=== PATIENT | male | born 1960 | race Caucasian/White ===

== ENCOUNTER → 2022-08-11 06:06 | Outpatient (CLI) | payer OTHER, SELFPAY ==
--- NOTE | 2022-08-11 06:18 | NM_ITS ---
APPROVED REPORT Exam: Nuclear Stress Test Indication: Chest pain, SOB, Obesity, HTN, DM, Family history Patient Location: Outpatient Stress Tech: Makenna Bill GA Tech:Yamileth Ma, ARRT, RT (R)(N) Ht: 6 ft 2 in Wt: 360 lbs HR: 70 bpm BP: 116/58 mmHg BSA: 2.79 m2 Rhythm: NSR TID: 1.34 BMI: 46.2 History: Chest pain, SOB, Obesity, HTN, DM, Family history Procedure: Patient received 0.4 mg of intravenous Lexiscan, resting heart rate 70 bpm, resting blood pressure 116/58 mmHg, with Lexiscan maximum heart rate achieved was 87 bpm which is 43 % of the maximum predicted heart rate and blood pressure was 123/48 mmHg. With Lexiscan, patient denied any complaint of chest pain. Cardiac Stress and Resting SPECT Images: Cardiac Stress and Resting SPECT images were obtained using technetium 99m Myoview 32.6 mCi stress and 10.34 mCi at rest. Resting and stress images in supine position demonstrate a medium-sized, moderate, fixed perfusion defect in the inferior LV wall. These defect is no longer visualized with prone stress imaging. Findings are suggestive of diaphragmatic attenuation. There is increased transient ischemic dilatation (TID 1.34) suggestive of possible balanced ischemia or multivessel disease. Gated imaging demonstrates low-normal global and regional systolic LV function. LVEF is calculated at 53%. Conclusion: Diaghragmatic attenuation is present. No definite fixed or reversible perfusion defects. Increased transient ischemic dilatation (TID 1.34) suggestive of possible balanced ischemia or multivessel disease. Gated imaging demonstrates low-normal global and regional systolic LV function. LVEF is calculated at 53%. Electronically signed by : Cassy Tellez, 08/13/2022 09:59:59
--- NOTE | 2022-08-11 08:19 | CA_ITS ---
APPROVED REPORT Exam: Pharmacologic Technologist: Makenna Rasmussen, Ht: 6 ft 2 in Wt: 360 lbs BSA: 2.79 m2 HR: 66 bpm BP: 116/58 mmHg Rhythm: NSR Medical History Medications: Amlodipine,,,,, Lisinopril,,,,, Aspirin,,,,, Metformin,,,,, Allopurinol,,,,, Pantoprazole,,,,, Atorvastatin,,,,, Glipizide,,,,, PERCOCET,,,,, TAMSULOSIN,,,,, Diclofenac,,,,, Magnesium,,,,, Stress Test Details Test: LEXISCAN Reason for pharmacologic stress test: physical limitation. HR Resting HR: 70 bpm Max Heart Rate (APMHR): 161 bpm Max HR Achieved: 87 bpm Target HR (85% APMHR): 137 bpm % of APMHR: 54 Recovery HR: 75 bpm BP Resting BP: 116.0/58.0 mmHg Max BP: 123.0/48.0 mmHg Recovery BP: 117.0/57.0 mmHg ECG Resting ECG: NSR Stress ECG: No ST changes Arrhythmia: None Recovery ECG: No ST changes Recovery Arrhythmia: None Clinical Exercise duration: 04:00 min Highest Stage Achieved: Exercise capacity: n/a METs Stress ECG Conclusion Symptoms: very mild chest discomfort, mildly light-headed. Arrhythmias/Ectopy: None ST-T Changes: No significant changes. Conclusion: Unremarkable Lexiscan stress. Myoview images reported separately. Test Summary REST . . . . . . . Resting REST 04:32 . . 70 . 116/ 58 . . Stage 1 01:00 . . 86 . . . . Stage 2 01:00 . . 80 . . . . Stage 3 01:00 . . 74 . 123/ 48 . . Stage 4 01:00 . . 74 . 108/ 50 . Stop exercise at 04:00 RECOVERY 01:00 . . 78 . . . . RECOVERY 02:00 . . 76 . 108/ 49 . . RECOVERY 03:00 . . 77 . 108/ 49 . . RECOVERY 04:00 . . 74 . 108/ 49 . . RECOVERY 04:24 . . 73 . 117/ 57 . . Electronically signed by : Cassy Tellez, 08/13/2022 09:51:57
--- NOTE | 2022-08-11 08:35 | HMH.ITSHM ---
Current Home Medications as stated by this patient Evan Huffman or strategic partnership representative. []SEMAGLUTIDE METFORMIN
== END ==
PROVIDERS: Visit Provider Physician Assistant
DX: R06.00 Dyspnea, unspecified (principal); R07.9 Chest pain, unspecified; R55 Syncope and collapse; R94.31 Abnormal electrocardiogram [ECG] [EKG]; Z01.810 Encounter for preprocedural cardiovascular examination
CPT/HCPCS: 78452; 93017; 93306; A9502; J2785; Q9957

== ENCOUNTER → 2022-08-25 08:34 | Day surgery (SDC) | payer OTHER, SELFPAY ==
[2022-08-25 08:40] VITALS: BMI 55.7
[2022-08-25 09:16] LABS: Basophils # 0.1 K/mm3 (0-0.2); Basophils % 0.7 % (0.1-2.0); Eosinophils # 0.2 K/mm3 (0.0-0.4); Eosinophils % 3.2 % (0.1-12.0); Hematocrit 41.1 % (42.0-52.0); Hemoglobin 13.3 g/dL (14.1-18.0); Lymphocytes # 2.2 K/mm3 (0.7-4.5); Lymphocytes % 32.2 % (10-50); Mean Corpuscular HGB Conc 32.4 g/dL (31.8-35.4); Mean Corpuscular Hemoglobin 29.6 pg (27.0-31.2); Mean Corpuscular Volume 91.1 fl (80-94); Monocytes # 0.5 K/mm3 (0.1-1.0); Monocytes % 7.9 % (1.7-9.3); Neutrophils # 3.8 K/mm3 (1.8-7.8); Platelet Count 197 K/mm3 (142-424); Red Blood Count 4.52 M/mm3 (4.60-6.20); White Blood Count 6.8 K/mm3 (4.8-10.8)
[2022-08-25 09:25] LABS: Chloride 106 mmol/L (98-107); Potassium 5.2 mmoL/L (3.5-5.1); Sodium 143 mmol/L (136-145)
[2022-08-25 09:26] VITALS: BP 137/77; PULSE 75; RESP 18; O2SAT 97
[2022-08-25 09:28] LABS: Anion Gap 16.2 mEq/L (5-15); Blood Urea Nitrogen 47 mg/dl (9-20); Carbon Dioxide 26 mmol/L (22.0-30.0); Creatinine Clearance Estimated 26 mL/min (50-200); Estimated Glomerular Filt Rate 22 ml/min (>60); GFR (African American) 27 ML/MIN (>60)
[2022-08-25 09:29] LABS: Glucose 99 mg/dl (74-100)
[2022-08-25 09:33] LABS: INR 1.01 (0.9-1.1); Prothrombin Time 10.9 seconds (10.1-12.5)
--- NOTE | 2022-08-25 10:00 | SUR.PREOP ---
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
--- NOTE | 2022-08-25 10:38 | SUR.PREOP ---
speaking with pt about lab results
--- NOTE | 2022-08-25 10:47 | SUR.PREOP ---
MD spoke with pt about what meds to hold, order for blood work and follow up given
== END ==
LOC: CATHLAB 08:37
PROVIDERS: PCP Internal Medicine; Visit Provider Internal Medicine
DX: Z53.09 Procedure and treatment not carried out because of other contraindication (principal); R94.39 Abnormal result of other cardiovascular function study; Z79.899 Other long term (current) drug therapy; Z79.84 Long term (current) use of oral hypoglycemic drugs; R07.9 Chest pain, unspecified; E11.9 Type 2 diabetes mellitus without complications; I10 Essential (primary) hypertension
CPT/HCPCS: 80048; 85025; 85610

== ENCOUNTER → 2022-09-09 11:08 | Outpatient (CLI) | payer OTHER, SELFPAY ==
[2022-09-09 12:10] LABS: Alanine Aminotransferase 27 U/L (12-78); Albumin Level 3.8 g/dl (3.5-5.0); Albumin/Globulin Ratio 1.5 (1.1-1.8); Alkaline Phosphatase 113 U/L (38-126); Anion Gap 11.3 mEq/L (5-15); Aspartate Amino Transferase 30 U/L (17-59); Bilirubin,Indirect 0.5 mg/dL (0.0-0.9); Bilirubin,Total 0.5 mg/dl (0.2-1.3); Bilirubin,Unconjugated 0.6 mg/dL (0.0-1.1); Blood Urea Nitrogen 12 mg/dl (9-20); Calcium 8.3 mg/dl (8.4-10.2); Carbon Dioxide 28 mmol/L (22.0-30.0); Chloride 108 mmol/L (98-107); Estimated Glomerular Filt Rate 68 ml/min (>60); GFR (African American) 83 ML/MIN (>60); Globulin 2.6 g/dL (1.3-3.2); Glucose 145 mg/dl (74-100); Potassium 4.3 mmoL/L (3.5-5.1); Sodium 143 mmol/L (136-145); Total Protein,Serum 6.4 g/dl (6.3-8.2)
[2022-09-09 12:24] LABS: Free T4 (Free Thyroxine) 1.05 ng/dl (0.78-2.19)
[2022-09-09 12:37] LABS: Thyroid Stimulating Hormone 1.39 uIU/mL (0.465-4.68)
== END ==
LOC: LAB 11:09
PROVIDERS: Internal Medicine; PCP Family Medicine; Visit Provider Physician Assistant
DX: I25.10 Atherosclerotic heart disease of native coronary artery without angina pectoris (principal); Z95.5 Presence of coronary angioplasty implant and graft
CPT/HCPCS: 36415; 80053; 80076; 84439; 84443

== ENCOUNTER 2022-09-10 07:40 | Day surgery (SDC) | payer OTHER, SELFPAY ==
[2022-09-10] VITALS (13 sets, daily range): BP systolic 132–163; BP diastolic 70–90; PULSE 55–77; RESP 18–20; O2SAT 96–99; BMI 45.3
--- NOTE | 2022-09-10 07:07 | IR_ITS ---
APPROVED REPORT Patient Location: Outpatient Operational Intelligence Analyst: KNENETH Rosa RT (R) PROCEDURES Left heart catheterization Left ventriculogram Selective coronary angiogram INDICATION High risk abnormal Myoview, Preoperative evaluation, Informed consent was obtained prior to the procedure. COMPLICATIONS None Estimated Blood Loss: Less than 10 mls TECHNIQUE One percent lidocaine used to anesthetize the right anterior aspect of the wrist. The right radial artery was accessed via the Seldinger technique. A 6 Salvadorean sheath was placed in the right radial artery. 150 mg magnesium sulfate, 800 mcg of nitroglycerin, 1mg Lidocaine and 5000 U Heparin were given through the arterial sheath. The papa catheter was also used to perform left heart catheterization, left ventriculogram and selective coronary angiogram. At the end of the procedure the sheath was removed good hemostasis was achieved using Traclet band, patient was transferred to the postop holding area in stable condition. ANGIOGRAPHIC RESULTS The left main artery Normal The left anterior descending artery Normal The circumflex artery Normal The right coronary artery Dominant normal The STEINBERG ventriculogram reveals Normal 65% The left ventricular end-diastolic pressure Severely elevated at 30 mmHg IMPRESSION Normal coronary arteries Normal ejection fraction Severely elevated LVEDP consistent with severe diastolic dysfunction PLAN 1. Patient is alone acceptable risk to proceed with elective knee surgery 2. 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 Perioperative caution is advised with the use of nephrotoxic drugs 3. Recommend sleep study if patient does not already have diagnosis of sleep apnea 4. Treatment of diastolic dysfunction with fluid restriction salt restrictions and the judicious use of loop diuretics and spironolactone Electronically signed by : Rayshawn Villasenor MD 09/10/2022 10:28:53
== END 2022-09-10 13:09 | disposition home or self-care (01) ==
PROVIDERS: PCP Family Medicine; Visit Provider Internal Medicine
DX: I20.8 Other forms of angina pectoris (principal); E11.9 Type 2 diabetes mellitus without complications; E78.5 Hyperlipidemia, unspecified; I10 Essential (primary) hypertension; R94.39 Abnormal result of other cardiovascular function study
CPT/HCPCS: 93458; 99152; C1725; C1760; C1769; J1644; Q9967

== ENCOUNTER → 2022-09-20 14:40 | Outpatient (CLI) | payer OTHER, SELFPAY ==
[2022-09-20 16:21] LABS: Chloride 100 mmol/L (98-107); Potassium 3.7 mmoL/L (3.5-5.1); Sodium 141 mmol/L (136-145)
[2022-09-20 16:24] LABS: Anion Gap 13.7 mEq/L (5-15); Blood Urea Nitrogen 22 mg/dl (9-20); Calcium 8.6 mg/dl (8.4-10.2); Carbon Dioxide 31 mmol/L (22.0-30.0); Estimated Glomerular Filt Rate 52 ml/min (>60); GFR (African American) 63 ML/MIN (>60); Glucose 146 mg/dl (74-100); Magnesium 1.3 mg/dl (1.6-2.3)
== END ==
LOC: LAB 14:41
PROVIDERS: PCP Family Medicine; Visit Provider Physician Assistant
DX: I20.8 Other forms of angina pectoris (principal); N17.9 Acute kidney failure, unspecified
CPT/HCPCS: 36415; 80048; 83735

== ENCOUNTER → 2022-10-20 11:35 | Outpatient (CLI) | payer OTHER, SELFPAY ==
[2022-10-20 12:29] LABS: Blood Urea Nitrogen 21 mg/dl (9-20); Calcium 9.1 mg/dl (8.4-10.2); Carbon Dioxide 30 mmol/L (22.0-30.0); Chloride 103 mmol/L (98-107); Estimated Glomerular Filt Rate 52 ml/min (>60); GFR (African American) 63 ML/MIN (>60); Glucose 237 mg/dl (74-100); Sodium 142 mmol/L (136-145)
== END ==
LOC: LAB 11:35
PROVIDERS: PCP Family Medicine; Visit Provider Physician Assistant
DX: R06.00 Dyspnea, unspecified (principal); R55 Syncope and collapse; I20.8 Other forms of angina pectoris; R94.31 Abnormal electrocardiogram [ECG] [EKG]; E11.9 Type 2 diabetes mellitus without complications; N17.9 Acute kidney failure, unspecified; Z79.84 Long term (current) use of oral hypoglycemic drugs
CPT/HCPCS: 36415; 80048

== ENCOUNTER 2023-07-24 13:07 | Emergency (ER) | payer SELFPAY ==
[2023-07-24] VITALS (8 sets, daily range): BP systolic 159–198; BP diastolic 90–110; PULSE 59–91; RESP 14–24; TEMP 36.6–36.9; O2SAT 97–100; BMI 38.2
--- NOTE | 2023-07-24 13:05 | ECG_ITS ---
APPROVED REPORT Exam: Resting ECG HR:83 bpm ECG Measurements Heart Rate 83 AXES NJ 179 P 22 QRSd 98 QRS 56 QT 386 T 18 QTc 426 Conclusion SINUS RHYTHM WITH MARKED SINUS ARRHYTHMIA NONSPECIFIC T-WAVE ABNORMALITY BORDERLINE ECG Electronically signed by : MEGHANN TAYLOR, 07/24/2023 16:18:52
--- NOTE | 2023-07-24 13:20 | XR_ITS ---
PROCEDURE INFORMATION: Exam: XR Chest Exam date and time: 07/24/2023 1:23 PM Age: 62 years old Clinical indication: Other: Chest pain TECHNIQUE: Imaging protocol: Radiologic exam of the chest. Views: 2 views. COMPARISON: No relevant prior studies available. FINDINGS: Tubes, catheters and devices: Neural stimulatory device with electrode terminating lower thoracic spine. Lungs: Lung volumes are somewhat decreased. Lung contreras are essentially clear for degree of aeration. No infiltrates or overt CHF. Pleural spaces: Unremarkable. No pleural effusion. No pneumothorax. Heart/Mediastinum: Unremarkable. No cardiomegaly. Bones/joints: Unremarkable for age. IMPRESSION: No active disease.
[2023-07-24 13:29] LABS: Chloride 101 mmol/L (98-107)
[2023-07-24 13:30] LABS: Potassium 3.7 mmoL/L (3.5-5.1); Sodium 139 mmol/L (136-145)
[2023-07-24 13:32] LABS: Alanine Aminotransferase 39 U/L (12-78); Aspartate Amino Transferase 42 U/L (17-59); Blood Urea Nitrogen 15 mg/dl (9-20); Creatinine Clearance Estimated 133 mL/min (50-200); Estimated Glomerular Filt Rate 68 ml/min (>60); GFR (African American) 83 ML/MIN (>60)
[2023-07-24 13:33] LABS: Albumin Level 4.8 g/dl (3.5-5.0); Albumin/Globulin Ratio 1.3 (1.1-1.8); Alkaline Phosphatase 130 U/L (38-126); Anion Gap 15.7 mEq/L (5-15); Calcium 9.9 mg/dl (8.4-10.2); Carbon Dioxide 26 mmol/L (22.0-30.0); Globulin 3.7 g/dL (1.3-3.2); Glucose 258 mg/dl (74-100); Total Protein,Serum 8.5 g/dl (6.3-8.2)
[2023-07-24 13:45] LABS: Troponin I < 0.01 ng/ml (0.00-0.034)
[2023-07-24 13:57] LABS: Basophils # 0.1 K/mm3 (0-0.2); Basophils % 0.4 % (0.1-2.0); Eosinophils # 0.1 K/mm3 (0.0-0.4); Eosinophils % 0.4 % (0.1-12.0); Hematocrit 49.3 % (42.0-52.0); Hemoglobin 16.7 g/dL (14.1-18.0); Lymphocytes # 2.1 K/mm3 (0.7-4.5); Lymphocytes % 17.9 % (10-50); Mean Corpuscular HGB Conc 33.9 g/dL (31.8-35.4); Mean Corpuscular Hemoglobin 29.3 pg (27.0-31.2); Mean Corpuscular Volume 86.2 fl (80-94); Mean Platelet Volume 8.3 fl (7.4-10.4); Monocytes # 0.4 K/mm3 (0.1-1.0); Monocytes % 3.4 % (1.7-9.3); Neutrophils % 77.8 % (37.0-80.0); Platelet Count 245 K/mm3 (142-424); Red Blood Count 5.71 M/mm3 (4.60-6.20); Red Cell Distribution Width 14.4 % (11.5-17.5); White Blood Count 11.6 K/mm3 (4.8-10.8)
--- NOTE | 2023-07-24 14:23 | ED_ITS ---
<Statement entered by Keyla Pascal MD - 07/25/23 07:14> I was consulted by the ARCHANA, and we discussed the complexity of the problems being addressed. I approved the treatment and management plan for this patient's care in the emergency department, thus performing a substantive portion of the medical decision making. Keyla Pascal MD, IVORY, FACEP Discharge Plan Disposition Patient Disposition: Home, Self-Care Condition: Fair Prescriptions Prescriptions: New promethazine 25 mg tablet 25 mg PO Q4H PRN (Reason: Nausea vomiting) Qty: 10 0RF No Action atorvastatin 10 mg tablet 10 mg PO DAILY glipizide 5 mg tablet extended release 24hr 5 mg PO DAILY tamsulosin 0.4 mg capsule 0.4 mg PO BID pantoprazole 40 mg tablet,delayed release (DR/EC) 40 mg PO DAILY aspirin 81 mg tablet,chewable 1 tab PO DAILY furosemide [Lasix] 40 mg tablet 40 mg PO Q OTHER DAY Qty: 15 2RF spironolactone [Aldactone] 25 mg tablet 25 mg PO Q OTHER DAY Qty: 15 2RF pregabalin 150 mg capsule 150 mg PO BID magnesium oxide 400 mg magnesium capsule 400 mg PO DAILY Qty: 30 3RF semaglutide 0.25 mg or 0.5 mg(2 mg/1.5 mL) pen injector 0.25 mg SQ WEEKLY amlodipine [Norvasc] 5 mg tablet 5 mg PO DAILY Referrals Follow up/Referrals: Jose Daniel Mendes MD [Staff Physician] - See instructions Provider,MD Kallie [Primary Care Provider] - See instructions Activity Restrictions/Add. Instructions Additional Instructions/Restrictions: Please follow-up with your PCP closely. I have referred you to get an EGD and you need to call and schedule an appointment. Return to the emergency department for any worsening signs or symptoms including inability to tolerate oral intake increasing abdominal pain etc. Clinical Impressions Clinical Impression: Abdominal pain, acute, epigastric, Nausea & vomiting Instructions Patient Instructions: DI for Acute Abdominal Pain Discharge ED Provider: Keyla Pascal General Adult HPI General Chief complaint: Abdominal Pain Stated complaint: CP Time Seen by Provider: 07/24/23 14:08 Mode of Arrival: Ambulatory Source of Information: Patient Limitations: No Limitations Description of Symptoms (Recalled from ER Triage Doc. by RN): c/o feeling funny in his stomach with vomiting, pressure in his chest and pain off and on since night History of Present Illness HPI narrative: Patient presents for evaluation of abdominal pain. Patient states since he has had epigastric abdominal pain with some nausea occasional vomiting but no diarrhea. Patient reports he has had 2 bowel movements today that are normal. He is passing flatus. He is a type II diabetic currently only on oral replacement but previously was on Ozempic but last dose was in February 2023. Patient states pain does not radiate anywhere and has been intermittent in nature. Patient had a full meal last night including steak hoagie. He denies chest pain shortness of breath fever chills hemoptysis hematochezia melena hematemesis hematuria. Related Data Home Medications Medication Instructions Recorded Confirmed pregabalin 150 mg capsule 150 mg PO BID Pain 08/16/22 10/20/22 amlodipine 5 mg tablet (Norvasc) 5 mg PO DAILY htn 09/10/22 10/20/22 semaglutide 0.25 mg or 0.5 mg (2 0.25 mg SQ WEEKLY Diabetes 09/10/22 10/20/22 mg/1.5 mL) subcutaneous pen injector aspirin 81 mg chewable tablet 1 tab PO DAILY 10/20/22 10/20/22 atorvastatin 10 mg tablet 10 mg PO DAILY 10/20/22 10/20/22 glipizide 5 mg tablet, extended 5 mg PO DAILY 10/20/22 10/20/22 release 24 hr pantoprazole 40 mg tablet,delayed 40 mg PO DAILY 10/20/22 10/20/22 release tamsulosin 0.4 mg capsule 0.4 mg PO BID 10/20/22 10/20/22 Previous Rx's Medication Instructions Recorded magnesium oxide 400 mg PO DAILY #30 caps 09/23/22 furosemide 40 mg tablet (Lasix) 40 mg PO Q OTHER DAY #15 tabs 10/20/22 spironolactone 25 mg tablet 25 mg PO Q OTHER DAY #15 tabs 10/20/22 (Aldactone) promethazine 25 mg tablet 25 mg PO Q4H PRN Nausea vomiting 07/24/23 #10 tabs Allergies Allergy/AdvReac Type Severity Reaction Status Date / Time No Known Allergies Allergy Verified 09/20/22 13:42 [facility] Disclaimer: The information contained in this section may have been updated after the patient was seen, as this information can be updated by other users. Medical History Abnormal electrocardiogram [ECG] [EKG] Chest pain Diabetes mellitus, type 2 Dyspnea Encounter for pre-operative cardiovascular clearance Hyperlipidemia Hypertension Near syncope Osteoarthritis Palpitations Surgical History Hx of knee surgery arthroscopy Right Family History Other Family history of diabetes mellitus type II Family history of myocardial infarction Social History Smoking Status: Former smoker alcohol intake: never substance use type: denies use current occupational status: employed Travel in the last 8 weeks: Inside the [place] adopted: No caregiver/support person: No foster care: No household members: spouse housing: house lives independently: Yes marital status: caffeine: Yes special riri needs: No agree to transfusion: No do you feel safe at home: Yes victim of physical abuse: No victim of emotional abuse: No victim of sexual abuse: No would you like helpful sources: No ROS Obtained: Yes Systems reviewed as appropriate & no additional complaints except as documented Physical Exam General General appearance: alert and in no apparent distress Eye Eye exam: Present EOMI Respiratory Respiratory exam: Present normal lung sounds bilaterally; Absent respiratory distress, wheezes or accessory muscle use Cardiovascular Cardiovascular exam: Present regular rate and normal rhythm Abdominal Exam Abdominal exam: Present soft (Obese), tenderness (In the epigastrium) and normal bowel sounds; Absent guarding, rebound or rigidity Back Exam Back exam: Present normal inspection and full ROM; Absent tenderness, CVA tenderness (R) or CVA tenderness (L) Neurological Exam Neurological exam: Present alert and oriented X3 Medical Decision Making Medical Records Medical records reviewed: Yes I reviewed the patient's medical records. [place] Inquiry Pt receiving controlled substance: No Vital Signs: 07/24/23 13:07 07/24/23 13:31 07/24/23 14:00 Temperature 98.4 F Temperature Source Oral Pulse Rate 84 65 Pulse Rate [Left Radial] 63 Respiratory Rate 18 24 Blood Pressure 159/96 H 169/90 H Blood Pressure [Right Arm] 180/92 H Blood Pressure Mean 117 112 Blood Pressure Mean [Right Arm] 121 Blood Pressure Source [Right Arm] Automatic Cuff Blood Pressure Position [Right Arm] Sitting 02 Sat by Pulse Oximetry 100 100 99 Oxygen Delivery Method Room Air 07/24/23 14:49 07/24/23 15:00 07/24/23 15:30 Temperature Temperature Source Pulse Rate 78 62 91 H Pulse Rate [Left Radial] Respiratory Rate 14 14 24 Blood Pressure 174/98 H 175/97 H 189/110 H Blood Pressure [Right Arm] Blood Pressure Mean 120 117 Blood Pressure Mean [Right Arm] Blood Pressure Source [Right Arm] Blood Pressure Position [Right Arm] 02 Sat by Pulse Oximetry 100 100 97 Oxygen Delivery Method Room Air Lab Data Lab results reviewed: Yes I reviewed the patient's lab results. Lab Results 07/24/23 13:10: WBC 11.6 H, RBC 5.71, Hgb 16.7, Hct 49.3, MCV 86.2, MCH 29.3, MCHC 33.9, RDW 14.4, Plt Count 245, MPV 8.3, Neut % (Auto) 77.8, Lymph % (Auto) 17.9, Carlton % (Auto) 3.4, Eos % (Auto) 0.4, Baso % (Auto) 0.4, Neut # (Auto) 9.0 H, Lymph # (Auto) 2.1, Carlton # (Auto) 0.4, Eos # (Auto) 0.1, Baso # (Auto) 0.1, Sodium 139, Potassium 3.7, Chloride 101, Carbon Dioxide 26, Anion Gap 15.7 H, BUN 15, Creatinine 1.10, Estimated Creat Clear 133, Estimated GFR 68, Est GFR ( Amer) 83, Glucose 258 H, Calcium 9.9, Magnesium 1.5 L, Total Bilirubin 1.0, AST 42, ALT 39, Alkaline Phosphatase 130 H, Troponin I < 0.01, Total Protein 8.5 H D, Albumin 4.8, Globulin 3.7 H, Albumin/Globulin Ratio 1.3, Lipase 31, Acetone Level None detected 07/24/23 14:25: VBG pH 7.44 H, VBG pCO2 32.2 L, VBG pO2 45.4 H, VBG HCO3 21.6 L, VBG Total CO2 22.6 L, VBG O2 Saturation 80.7 H, VBG Base Excess -2.5 L, VBG Lactic Acid 2.3 H 05/19/24 13:10 07/24/23 13:10 Orders (Tests/Meds): ED MEDICATIONS Discontinued Medications Generic Name Dose Route Start Last Admin Trade Name Ewa PRN Reason Stop Dose Admin Acetaminophen 1,000 mg 07/24/23 14:24 07/24/23 14:41 Acetaminophen 1,000mg/100ml Vial IV 07/24/23 14:25 1,000 mg ONCE ONE Administration Belladonna Alkaloids 60 ml 07/24/23 15:04 07/24/23 15:20 Belladonna Alkaloids 60 Ml Ml PO 07/24/23 15:05 60 ml ONCE ONE Administration Lactated Ringer's 1,000 mls @ 999 mls/hr 07/24/23 14:24 07/24/23 14:42 Lactated Ringer's 1000 Ml Bag IV 07/24/23 15:24 999 mls/hr .Q1H1M ONE Administration Iopamidol 75 ml 07/24/23 14:39 07/24/23 14:40 Iopamidol-370 (76%);100ml Bottle IV 07/24/23 14:40 75 ml ONCE ONE Administration Ketorolac Tromethamine 15 mg 07/24/23 14:24 07/24/23 14:41 Ketorolac 30mg/Ml Vial IV 07/24/23 14:25 15 mg ONCE ONE Administration Ondansetron HCl 4 mg 07/24/23 14:28 07/24/23 14:42 Ondansetron 4mg Odt SL 07/24/23 14:29 4 mg ONCE ONE Administration Promethazine HCl 25 mg 07/24/23 15:27 07/24/23 15:33 Promethazine Hcl 25mg/Ml 1ml Vial IV 07/24/23 15:28 25 mg ONCE ONE Administration Sodium Chloride 10 ml 07/24/23 14:39 07/24/23 14:40 Sodium Chloride 0.9% 10ml Syr (Rad Only) IV 07/24/23 14:40 10 ml ONCE ONE Administration Sodium Chloride 25 ml 07/24/23 15:27 07/24/23 15:33 Sodium Chloride 0.9% 25ml Bag IV 07/24/23 15:28 25 ml ONCE ONE Administration ORDERS Category Date Time Status CT abdomen pelvis w con Stat Cat Scan 07/24/23 14:24 Completed XR chest 2V Stat Exams 07/24/23 13:20 Completed Acetone, Serum (Rapid) Stat Lab 07/24/23 13:10 Completed Complete Blood Count Auto Diff Stat Lab 07/24/23 13:10 Completed Comprehensive Metabolic Panel Stat Lab 07/24/23 13:10 Completed Lipase Stat Lab 07/24/23 13:10 Completed Magnesium Stat Lab 07/24/23 13:10 Completed Troponin I Q3H Lab 07/24/23 16:30 Ordered Troponin I Q3H Lab 07/24/23 19:30 Ordered Troponin I Stat Lab 07/24/23 13:10 Completed UA [Urinalysis and Microscopic] Stat Lab 07/24/23 14:25 Ordered VBG [Venous Blood Gas] Stat RT 07/24/23 14:25 Completed Medical Decision Narrative: In summary patient is a 62-year-old male who presents to the emergency department for evaluation of abdominal pain. Patient is hemodynamically stable upon arrival, afebrile. Physical exam is remarkable for epigastric abdominal pain with normal bowel sounds no rebound no guarding no rigidity.. Differential diagnosis includes pancreatitis, gastric ulcer, DKA, cholecystitis, ACS etc. Initial workup will be conducted with hematologic labs CT scan abdomen pelvis. Initial interventions include fluid bolus Tylenol Toradol Zofran. Initial workup reviewed by me shows that the patient has an elevated blood sugar with a mild acidosis with a gap of 15 but the remainder of his hematologic labs are nonactionable. Upon repeat evaluation patient had no resolution of his symptoms so I ordered a GI cocktail. Unfortunately patient vomited 2 minutes after ingesting it. At that point I ordered the patient Phenergan and will reassess to see if patient can tolerate p.o. after.. Reassessment shows the patient is able to tolerate oral intake after Phenergan. Given this Prober for discharge home with a prescription for Phenergan and a referral for an EGD. Patient to return for any worsening signs or symptoms. Critical Care Critical Care Time Critical Care Time: No
--- NOTE | 2023-07-24 14:24 | CT_ITS ---
PROCEDURE INFORMATION: Exam: CT Abdomen And Pelvis With Contrast Exam date and time: 07/24/2023 2:33 PM Age: 62 years old Clinical indication: Abdominal pain; Generalized; Additional info: Epigastric abdominal pain TECHNIQUE: Imaging protocol: Computed tomography of the abdomen and pelvis with contrast. Radiation optimization: All CT scans at this facility use at least one of these dose optimization techniques: automated exposure control; mA and/or kV adjustment per patient size (includes targeted exams where dose is matched to clinical indication); or iterative reconstruction. Contrast material: ISOVUE; Contrast volume: 75 ml; Contrast route: IV; COMPARISON: CR XR CHEST 2V 07/24/2023 1:23 PM FINDINGS: Tubes, catheters and devices: Neural stimulatory device with pattern all implanted in the right lower back and electrodes extending into the lower portion of the thoracic spinal canal. Lungs: Lung bases are clear. Liver: Normal. No mass. Gallbladder and bile ducts: Normal. No calcified stones. No ductal dilation. Pancreas: Normal. No ductal dilation. Spleen: Normal. No splenomegaly. Adrenal glands: Normal. No mass. Kidneys and ureters: Normal. No hydronephrosis. Stomach and bowel: There are multiple diverticuli throughout the distal portion of the large bowel without evidence of diverticulitis. Appendix: No evidence of appendicitis. Intraperitoneal space: Unremarkable. No free air. No significant fluid collection. Vasculature: Scattered atherosclerotic changes of the abdominal aorta and iliac vessels. No aortic aneurysm. Lymph nodes: Unremarkable. No enlarged lymph nodes. Urinary bladder: Unremarkable as visualized. Reproductive: Prostate gland is mildly enlarged. Bones/joints: Moderate degenerative changes lumbar spine. No acute bony abnormalities. Soft tissues: Unremarkable. IMPRESSION: No acute findings within the abdomen or pelvis.
[2023-07-24] MEDS: IOPAMIDOL-370 (76%);100ML BOTTLE 75 ML IV (14:40)
[2023-07-24] MEDS: SODIUM CHLORIDE 0.9% 10ML SYR (RAD ONLY) 10 ML IV (14:40)
[2023-07-24 14:41] LABS: Acetone, Serum (Rapid) None Detected (None Detect)
[2023-07-24] MEDS: KETOROLAC 30MG/ML VIAL 15 MG IV (14:41)
[2023-07-24] MEDS: ACETAMINOPHEN 1,000MG/100ML VIAL 1000 MG IV (14:41)
[2023-07-24 14:42] LABS: Lipase 31 U/L (23-300); Magnesium 1.5 mg/dl (1.6-2.3)
[2023-07-24] MEDS: ONDANSETRON 4MG ODT 4 MG SL (14:42)
[2023-07-24] MEDS: LACTATED RINGERS 1000ML 1,000 ML 999 ML IV (14:42)
[2023-07-24 14:56] LABS: VBG Base Excess -2.5 mmol/L (-2.4-2.3); VBG HCO3 21.6 mmol/L (23-30); VBG Oxygen Saturation 80.7 % (50-70); VBG PCO2 32.2 mmol/L (35-51); VBG PH 7.44 mmol/L (7.31-7.41); VBG PO2 45.4 mmol/L (28-40); VBG Total CO2 22.6 mmol/L (23-27)
[2023-07-24 14:57] LABS: Lactate Venous 2.3 mmol/L (0.4-2.0)
[2023-07-24] MEDS: BELLADONNA ALKALOIDS 60 ML ML PO (15:20)
[2023-07-24] MEDS: SODIUM CHLORIDE 0.9% 25ML BAG 25 ML IV (15:33)
[2023-07-24] MEDS: PROMETHAZINE HCL 25MG/ML 1ML VIAL 25 MG IV (15:33)
[2023-07-24 16:31] LABS: Microscopic, Urine URINE MICROSCOPIC (MICROSCOPIC)
[2023-07-24 16:40] LABS: Appearance,Urine CLEAR (Clear); Bilirubin,Urine Negative (Negative); Blood, Urine Negative (Negative); Color,Urine YELLOW (Yellow); Glucose,Urine (UA) 1+ (Negative); Ketones,Urine TRACE (Negative); Leukocyte Esterase,Urine Negative (Negative); Nitrate,Urine Negative (Negative); Protein,Urine Negative (Negative); Specific Gravity, Urine 1.015 (1.005-1.030); Urobilinogen,Urine 0.2 EU/dl (0.2)
[2023-07-24 16:56] LABS: WBC,Urine Occasional #/hpf (0-3)
== END 2023-07-24 16:30 | disposition home or self-care (01) ==
PROVIDERS: Physician Assistant; Emergency Provider Student in an Organized Health Care Education/Training Program
DX: E11.65 Type 2 diabetes mellitus with hyperglycemia (principal); R10.13 Epigastric pain; R11.2 Nausea with vomiting, unspecified; I49.9 Cardiac arrhythmia, unspecified; I10 Essential (primary) hypertension; E78.5 Hyperlipidemia, unspecified; Z87.891 Personal history of nicotine dependence; Z79.84 Long term (current) use of oral hypoglycemic drugs
CPT/HCPCS: 71046; 74177; 80053; 81001; 82009; 82803; 83690; 83735; 84484; 85025; 93005; 96361; 96374; 96375; 99285; J0131; Q9967